=== PATIENT | female | born 1965 | race Caucasian/White ===

== ENCOUNTER 2022-01-03 19:42 | Emergency (ER) | payer OTHER ==
[2022-01-03 19:57] VITALS: BP 130/74
[2022-01-03] MEDS ORDERED: HYDROcod/ACET 5/325 Prepack 4 PO STA (21:12)
--- NOTE | 2022-01-03 21:14 | XRAY Report ---
PROCEDURE: Foot 3 View RT INDICATIONS: Trauma TECHNIQUE: 3 views of the foot were acquired. COMPARISON: None. FINDINGS: Bones: No fractures or dislocations. There is mild degeneration at the first metatarsophalangeal sravani int. No suspicious bony lesions. Soft tissues: No tibiotalar joint effusion. Achilles tendon appears normal. IMPRESSION: 1. No fracture or dislocation. Reviewed by: Joshua Salgado MD on 01/03/2022 9:12 PM PDT Approved by: Joshua Salgado MD on 01/03/2022 9:12 PM PDT Station ID: [id number]
--- NOTE | 2022-01-03 21:21 | ED Physician Documentation ---
PD HPI LOWER EXT INJURY - Stated complaint Stated Complaint: R FOOT INJ - Chief complaint Chief Complaint: Trauma Ext - History obtained from History obtained from: Patient - Additional information Additional information: Patient is a 56-year-old female with no significant past medical history Presenting for evaluation of right foot injury that occurred at 10 AM. Patient [place] for the horse show and a horse accidentally stepped on her right foot. She did not have boots on like she normally does.She has been having tenderness and bruising to the right foot since. She has tried ibuprofen with some improvement in her symptoms but the pain is sharp and aching and worse with ambulation. She is not on a blood thinner. She denies injuries elsewhere.She did go to the walk-in clinic but they were not able to do an x-ray and directed her to the emergency department.Her last tetanus was in 2018. Review of Systems Constitutional: denies: Fever Cardiac: denies: Chest pain / pressure Respiratory: denies: Dyspnea GI: denies: Abdominal Pain, Vomiting Skin: reports: Laceration (s) Musculoskeletal: reports: Extremity pain Neurologic: denies: Head injury PD PAST MEDICAL HISTORY - Present Medications Home Medications: Ambulatory Orders Medication Instructions Recorded Confirmed HYDROcod/ACETAM 5/325 [[place] 5/325] 1 tab PO Q6H PRN #12 tablet 01/03/22 - Allergies Allergies/Adverse Reactions: Allergies Allergy/AdvReac Type Severity Reaction Status Date / Time No Known Drug Allergies Allergy Verified 01/03/22 19:46 PD ED PE NORMAL - General General: Alert and oriented X 3, No acute distress, Well developed/nourished - HEENT HEENT: Atraumatic - Respiratory Respiratory: No respiratory distress - Derm Derm: Other (Bruising to right great toe, second through fourth digits,) - Extremities Extremities: Normal ROM s pain, Other (Tenderness to right great toe, bruising, pedal pulses intact, able to move all digits, Compartments of extremity are s oft, 1 cm laceration to proximal nail fold). No: No tenderness to palpate, No calf tenderness / cord - Neuro Neuro: No motor deficit, Normal speech PD ED PE EXPANDED - Extremities RHODA LE visual: 1 - abrasion Feet visual: 1 - laceration 2 - bruising Results - Vitals Vitals: Vital Signs - 24 hr 01/03/22 19:46 Temperature 36.5 C Heart Rate 60 Respiratory 16 Rate Blood Pressure 130/74 O2 Saturation 99 Oxygen O2 Source Room air Procedures - Laceration (location) Right great toe Wound type: Linear (At proximal nail fold), Clean Neurovascular status: Sensory intact, Motor intact, Vascular intact Wound preparation: Hibiclens, Irrigated copiously NS, Other (Nail tucked back into nail fold) Skin layer closure: Dermabond Other: Patient tolerated well, No complications, Neurovascular intact, Dressing applied, Tetanus UTD PD MEDICAL DECISION MAKING - ED course Complexity details: reviewed results, d/w patient ED course: Patient with injury to right foot after horse stepped on it earlier today. She is not on blood thinners. Neurovascularly intact. She did sustain an injury to the proximal nail fold. I talked the nail back under the nail fold and applied Dermabond. An x-ray was obtained. Concern for fracture of the distal phalanx of the right great toe as visualized on the lateral projection. I reviewed my findings with the patient and recommended scott tape with close follow-up with orthopedic surgeon or tag press operator.Patient is aware of return precautions.She is ambulatory at discharge. She has crutches at home and declined postop shoe or crutches here. Departure - Departure Disposition: 01 Home, Self Care Clinical Impression: Fracture of right great toe Qualifiers: Encounter type: initial encounter Fracture type: closed Phalanx: distal Fracture alignment: nondisplaced Qualified Code(s): S92.424A - Nondisplaced fracture of distal phalanx of right great toe, initial encounter for closed fracture Nailbed laceration, toe Qualifiers: Encounter type: initial encounter Qualified Code(s): S91.219A - Laceration without foreign body of unspecified toe(s) with damage to nail, initial encounter Condition: Stable Instructions: ED Fx Toe Closed Prescriptions: HYDROcod/ACETAM 5/325 [[place] 5/325] 1 tab PO Q6H PRN #12 tablet PRN Reason: Pain Comments: You were evaluated for an injury to your right great toe. An x-ray shows a fracture to the distal portion of the great toe. There is also a Superficial laceration at the nail edge.For the fracture we recommend scott tape and close follow-up with an orthopedic doctor or tag press operator. I we will send a prescription for Vicodin to [facility] in [place]. Please make sure to immobilize and elevate your foot as that will help with swelling and discomfort. You should also use ice to the foot. I am prescribing a short course of narcotic pain medication for you. These are potentially dangerous and addictive medications that should be used carefully. These medications may constipate you. Take an [id number]-[id number] stool softener (docusate) twice daily with plenty of water while taking these medications. If you go 24 hours without a bowel movement, take [id number]-[id number] miralax, per package instructions. Do not drink or drive while taking these medications. If you received narcotic or sedating medications while in the emergency department, do not drive for 24 hours. Store this medication in a safe, secure place and out of reach of children. It is a violation of federal law to give or sell this medication to another per son or to use in a manner other than prescribed. The ED will not refill narcotic prescriptions, including prescriptions lost or stolen. To dispose of unwanted medications: 1. [facility] at [address] in [place] has a medication drop box. They accept prescription medications (in pill form) Thursday through Thursday 9:00 a.m. to 5:00 p.m. 2. The [facility] [employer] accepts prescription medications (in pill form only) for disposal year round. Call for more information. 3. Contact the [facility] for the next [facility] sponsored prescription drug collection event. , [phone], or [phone]; Note that many narcotic pain relievers also contain Tylenol/acetaminophen. Please ensure that your total dose of acetaminophen from all sources does not exceed 3 g (3000 mg) per day. Discharge Date/Time: 01/03/22 21:30
== END 2022-01-03 21:30 | disposition home or self-care (01) ==
LOC: ED 19:42
DX: S92.424A Nondisplaced fracture of distal phalanx of right great toe, initial encounter for closed fracture (principal); S91.219A Laceration without foreign body of unspecified toe(s) with damage to nail, initial encounter; W55.19XA Other contact with horse, initial encounter
CPT/HCPCS: 12001; 99283; 99284